=== PATIENT | male | born 1985 | race Caucasian/White ===

== ENCOUNTER 2020-06-27 02:46 | Outpatient (CLI) | payer BC, SELFPAY ==
[2020-06-27 12:16] LABS: Hemoglobin A1C 5.5 % (3.8-5.6)
[2020-06-27 13:42] LABS: Calculated LDL 176 mg/dL (<100); Cholesterol 241 mg/dL (<200); HDL Cholesterol 58 mg/dL (40-60); Triglyceride 35 mg/dL (<150)
== END 2020-06-27 03:06 ==
PROVIDERS: PCP Nurse Practitioner; Visit Provider Nurse Practitioner
DX: Z13.1 Encounter for screening for diabetes mellitus (principal); Z13.6 Encounter for screening for cardiovascular disorders
CPT/HCPCS: 36415; 80061; 83036

== ENCOUNTER 2020-07-01 11:09 | Outpatient (REF) | payer BC, SELFPAY ==
[2020-07-01 14:12] LABS: Hemoglobin A1C 5.4 % (3.8-5.6)
== END 2020-07-01 11:29 ==
LOC: LBN 11:09
PROVIDERS: PCP Nurse Practitioner; Visit Provider Nurse Practitioner
DX: R73.9 Hyperglycemia, unspecified (principal)
CPT/HCPCS: 83036

== ENCOUNTER 2021-11-21 03:26 | Outpatient (CLI) | payer BC, SELFPAY ==
[2021-11-21 11:06] LABS: Calculated LDL 158 mg/dL (<100); Cholesterol 244 mg/dL (<200); HDL Cholesterol 60 mg/dL (40-60); Triglyceride 130 mg/dL (<150)
== END 2021-11-21 03:27 | disposition home or self-care (01) ==
PROVIDERS: PCP Nurse Practitioner; Visit Provider Nurse Practitioner
DX: Z13.6 Encounter for screening for cardiovascular disorders (principal)
CPT/HCPCS: 36415; 80061

== ENCOUNTER 2023-02-08 02:36 | Outpatient (CLI) | payer BC, SELFPAY ==
[2023-02-08 10:01] LABS: ALT 26 U/L (16-63); AST 18 U/L (15-37); Albumin 4.3 g/dL (3.4-5.0); Alkaline Phosphatase 68 U/L (46-116); Anion Gap 5.3 mmol/L (3-11); BUN 11 mg/dL (7-18); CO2 29.7 mmol/L (21.0-32.0); Calcium 9.1 mg/dL (8.5-10.1); Chloride 100 mmol/L (98-107); Estimated GFR 100.03 (mL/min/1.73m2); Glucose 99 mg/dL (74-106); Potassium 4.1 mmol/L (3.5-5.1); Sodium 135 mmol/L (136-145); Total Protein 7.6 g/dL (6.4-8.2)
[2023-02-08 10:09] LABS: Calculated LDL 144 mg/dL (<100); Cholesterol 230 mg/dL (<200); HDL Cholesterol 74 mg/dL (40-60); TSH (W/Ref FT4) 1.59 uIU/mL (0.36-3.74); Triglyceride 62 mg/dL (<150)
== END 2023-02-08 02:37 | disposition home or self-care (01) ==
PROVIDERS: Nurse Practitioner Family; PCP Nurse Practitioner Family; Visit Provider Nurse Practitioner Family
DX: Z00.00 Encounter for general adult medical examination without abnormal findings (principal); E78.00 Pure hypercholesterolemia, unspecified; I10 Essential (primary) hypertension; R00.9 Unspecified abnormalities of heart beat; F41.8 Other specified anxiety disorders; F41.0 Panic disorder [episodic paroxysmal anxiety]
CPT/HCPCS: 36415; 80053; 80061; 84443